=== PATIENT | male | born 1985 | race American Indian/Alaskan Native ===

== ENCOUNTER 2023-05-06 08:03 | Emergency (ER) | payer SELFPAY ==
[~2023-05-06] VITALS: Ht 182.9 cm; Wt 77.3 kg
[~2023-05-06 08:03] MED LIST: APRESOLINE 25MG25 MG PO; COLACE 100100 MG/CAP PO; CYMBALTA 60MG60 MG PO; SEROQUEL300 MG PO
[2023-05-06 08:15] VITALS: TEMP 98.1
[2023-05-06] MEDS ORDERED: Ketorolac 30 MG/ML VIAL IV ONE (08:45)
[2023-05-06] MEDS ORDERED: NS 1,000 ML IV ONE (08:45)
[2023-05-06 09:06] LABS: HEMOGLOBIN 14.3 g/dl (13.5-18.0); MEAN CELL VOLUME 86 fl (80.0-100.0); MEAN CORPUSCULAR HEMOGLOBIN 30 pg (27-31); MEAN CORPUSCULAR HGB CONC 35 g/dl (33.0-37.0); MEAN PLATELET VOLUME 9.7 fl (7.4-10.4); PLATELET COUNT 200 K/mm3 (130-400); RED BLOOD COUNT 4.76 M/mm3 (4.20-5.60); REDCELL DISTRIBUTION WIDTH-CV 12.5 % (11.5-14.5)
[2023-05-06 09:30] LABS: ACETAMINOPHEN < 7.0 ug/mL (10-30); ALANINE AMINOTRANSFERASE 10 U/L (0-55); ALBUMIN 4.3 gm/dL (3.5-5.0); ALKALINE PHOSPHATASE 64 U/L (40-150); ANION GAP 11 mmol/L (7-16); AST,SGOT 16 U/L (5-34); BILIRUBIN,TOTAL 1.1 mg/dL (0.2-1.2); BLOOD UREA NITROGEN 14 mg/dL (9-21); CALCIUM 9.9 mg/dL (8.4-10.2); CARBON DIOXIDE 23 mmol/L (22-29); CHLORIDE 105 mmol/L (98-107); GLUCOSE 144 mg/dL (70-99); POTASSIUM 4.2 mmol/L (3.5-4.5); SODIUM 139 mmol/L (136-145); TOTAL PROTEIN 7.2 gm/dL (6.2-8.1)
[2023-05-06 09:46] LABS: ALCOHOL(ethanol),MEDICAL < 10 mg/dL (0-10); SALICYLATE < 5.0 mg/dL (15.0-30.0)
[2023-05-06 09:54] LABS: BAND 1 % (0-10); LYMPHOCYTE 7 % (20.0-51.0); NEUTROPHILS 89 % (42.0-75.2); PLATELET ESTIMATE NORMAL (NORMAL)
[2023-05-06 11:04] LABS: COLLECTION METHOD CLEAN CATCH
[2023-05-06 11:20] LABS: PH 5.5 (5.0-8.5); URINE APPEARANCE CLEAR (CLEAR/HAZY); URINE BLOOD NEGATIVE (NEGATIVE); URINE COLOR Dark Yellow (YELLOW); URINE GLUCOSE NEGATIVE (NEGATIVE); URINE KETONE 2+ (NEGATIVE); URINE NITRATE NEGATIVE (NEGATIVE); URINE PROTEIN(semi-quant) TRACE (NEGATIVE)
[2023-05-06 11:31] LABS: TRICYCLIC ANTIDEPRESS URINE POSITIVE (NEGATIVE)
[2023-05-06] MEDS ORDERED: NAPROSYN500 MG PO (13:14)
[2023-05-06] MEDS ORDERED: ZOFRAN ODT4 MG PO (13:14)
[2023-05-06] MEDS ORDERED: FLEXERIL5 MG PO (13:14)
[2023-05-06 13:34] VITALS: BP 105/65; PULSE 95
== END 2023-05-06 13:35 | disposition home or self-care (01) ==
LOC: COL.ER 08:03
PROVIDERS: Emergency Medicine
DX: M54.50 Low back pain, unspecified (principal); R11.2 Nausea with vomiting, unspecified
CPT/HCPCS: J1885; J2360; J7030